=== PATIENT | male | born 1990 | race American Indian/Alaskan Native ===

== ENCOUNTER 2018-03-09 22:27 | Emergency (ER) | payer SELFPAY ==
[2018-03-09] MEDS ORDERED: Tmp-Smz 800 mg-160 mg DS Tab PO STA (23:03)
--- NOTE | 2018-03-09 23:05 | C.PDOC ---
History Of Present Illness 27 y/o male presents to the ER complaining of right shoulder pain for 2 days. States he can feel a bump in the area, which has increased in size since onset. Denies trauma or injury. Patient also denies associated fever, chills, chest pain, or SOB. Time Seen by Provider: 03/09/18 22:43 Chief Complaint (Nursing): Upper Extremity Problem/Injury History Per: Patient History/Exam Limitations: no limitations Onset/Duration Of Symptoms: Days (x2) Current Symptoms Are (Timing): Still Present Past Medical History Reviewed: Historical Data, Nursing Documentation, Vital Signs Vital Signs: Last Vital Signs Temp 98.5 F 03/09/18 23:19 Pulse 65 03/09/18 23:19 Resp 16 03/09/18 23:19 BP 108/61 03/09/18 23:19 Pulse Ox 96 03/10/18 00:54 - Medical History PMH: No Chronic Diseases Surgical History: No Surg Hx Family History: States: No Known Family Hx - Social History Hx Tobacco Use: Yes Hx Alcohol Use: Yes Hx Substance Use: No - Immunization History Hx Tetanus Toxoid Vaccination: No Hx Influenza Vaccination: No Hx Pneumococcal Vaccination: No Review Of Systems Constitutional: Negative for: Fever, Chills Cardiovascular: Negative for: Chest Pain Respiratory: Negative for: Shortness of Breath Musculoskeletal: Positive for: Shoulder Pain Skin: Positive for: Other (lump to right shoulder) Neurological: Negative for: Weakness, Numbness Physical Exam - Physical Exam Appears: Well, Non-toxic, No Acute Distress Skin: Warm, Dry Head: Atraumatic, Normacephalic Eye(s): bilateral: Normal Inspection, EOMI Nose: Normal Oral Mucosa: Moist Neck: Normal ROM, Supple Chest: Symmetrical Cardiovascular: Rhythm Regular Respiratory: Normal Breath Sounds, No Accessory Muscle Use Extremity: Normal ROM (of right shoulder), Capillary Refill (less than 2 sec), No Deformity, Other (Right shoulder with 1 cm area of swelling, tenderness, erythema, and induration. No fluctuance) Pulses: Left Radial: Normal, Right Radial: Normal Neurological/Psych: Oriented x3, Normal Speech, Other (No focal deficits) ED Course And Treatment O2 Sat by Pulse Oximetry: 96 (RA) Pulse Ox Interpretation: Normal Progress Note: Treated patient with PO Motrin and Bactrim. Patient advised that area is not fluctuant at this time, and advised to apply warm compresses at home. Patient is stable for discharge home, provided prescriptions for Cephalexin, Bactrim, and Motrin. Instructed patient to return for wound check in 3 days. Disposition Counseled Patient/Family Regarding: Diagnosis, Need For Followup, Rx Given - Disposition Disposition: HOME/ ROUTINE Disposition Time: 23:03 Condition: STABLE Additional Instructions: Apply warm compresses. Return in 2-3 days for wound check. Prescriptions: Cephalexin [cephalexin] 500 mg PO BID #14 cap Ibuprofen [Motrin] 600 mg PO Q6 PRN #20 tab PRN Reason: Pain, Mild (1-3) Sulfamethoxazole/Trimethoprim [Bactrim DS 800 mg-160 mg] 1 tab PO BID #14 tab Instructions: Boil Forms: [facility] (Greenlandic) - POA Present On Arrival: None - Clinical Impression Clinical Impression: Cellulitis - PA / VENDING MECHANIC / Resident Statement MD/DO has reviewed & agrees with the documentation as recorded. - Scribe Statement The provider has reviewed the documentation as recorded by the Scribe (Amy Parada) All medical record entries made by the Scribe were at my direction and personally dictated by me. I have reviewed the chart and agree that the record accurately reflects my personal performance of the history, physical exam, medical decision making, and the department course for this patient. I have also personally directed, reviewed, and agree with the discharge instructions and disposition.
[2018-03-09] MEDS ORDERED: Tmp-Smz 800 mg-160 mg DS Tab ONE (23:15)
[2018-03-09 23:33] VITALS: BP 108/61; PULSE 65; RESP 16; TEMP 98.5
[2018-03-10 00:51] VITALS: O2SAT 96
== END 2018-03-09 23:28 | disposition home or self-care (01) ==
LOC: C.ER 22:27
DX: L03.113 Cellulitis of right upper limb (principal)